=== PATIENT | male | born 1970 | race Two or more races ===

== ENCOUNTER 2021-10-19 17:24 | Inpatient (IN) | payer OTHER ==
[~2021-10-19] VITALS: Ht 170.2 cm; Wt 78.5 kg
[2021-10-19] MEDS ORDERED: SODIUM CHLORIDE 0.9% 1,000 ML IV ONE ×2 (18:15→20:15)
[2021-10-19 18:35] LABS: Eosinophils # (auto) 0 10 ^3/uL (0-0.8); Monocytes # (auto) 1.3 10 ^3/uL (0-1.3); White Blood Cell 14.8 10^3/uL (4.4-10.8)
[2021-10-19 18:45] LABS: Albumin 3.3 g/dL (3.4-5.0); Calcium 8.8 mg/dL (8.5-10.1); Potassium 4.2 mmol/L (3.5-5.1)
[2021-10-19 18:49] LABS: BUN/Creatinine Ratio 15.5; Basophils # (auto) 0.1 10 ^3/uL (0-0.2); Bilirubin, Total 1.9 mg/dL (0.2-1.0); Neutrophils # (auto) 12.9 10 ^3/uL (1.6-8.6); Nucleated Red Blood Cells % 0.1 %; Total Protein 8.2 g/dL (6.4-8.2)
[2021-10-19 18:58] LABS: Basophils % (auto) 0.6 % (0.0-2.0); Hematocrit 52.8 % (41.0-53.0); Lymphocytes # (auto) 0.5 10 ^3/uL (0.4-5.4); Lymphocytes % (auto) 3.6 % (10.0-50.0); Mean Corpuscular Hemoglobin 30.7 pg (28.0-32.0); Mean Corpuscular Hgb Conc. 34.1 g/dL (32.0-36.0); Mean Corpuscular Volume 89.9 fL (80.0-100.0); Monocytes % (auto) 8.6 % (0.0-12.0); Neutrophils % (auto) 87.2 % (37.0-80.0); Red Blood Cells 5.88 10^6/uL (4.5-5.90); Red Cell Distribution Width 13.6 % (11.8-14.3)
[2021-10-19 19:01] LABS: INR 1.29 (0.9-1.15)
[2021-10-19 19:25] LABS: Lactic Acid w/Reflex 2.8 mmol/L (0.4-2.0)
[2021-10-19] MEDS ORDERED: IOHEXOL 350 MG/ML 100ML IJ ONE (19:35)
[2021-10-19] MEDS ORDERED: HEPARIN SODIUM (PORCINE) 5000 UNITS/ML 1ML VIAL IV ONE (20:45)
[2021-10-19] MEDS ORDERED: HEPARIN DRIP/D5W 100UNITS/ML 250 ML IV SCH (20:45)
[2021-10-19] MEDS ORDERED: VANCOMYCIN 1GM/250ML 250 ML IV ONE (21:00)
[2021-10-19] MEDS ORDERED: PIPERACILLIN-TAZOB 3.375GM 100 ML IV ONE ×2 (21:00)
[2021-10-19] MEDS ORDERED: VANCOMYCIN PER PHARMACY 0 MG IV SCH (23:15)
[2021-10-19] MEDS ORDERED: DOCUSATE SOD 100 MG CAP PO PRN (23:15)
[2021-10-19] MEDS ORDERED: HYDROcodone-ACET 5/325MG TAB PO PRN (23:15)
[2021-10-19] MEDS ORDERED: ONDANSETRON HCL 4 MG/2 ML VIAL IV PRN (23:15)
[2021-10-19] MEDS ORDERED: MORPHINE SULFATE 4 MG/ML SYR/VIAL IV PRN (23:15)
[2021-10-19] MEDS ORDERED: ACETAMINOPHEN 325 MG TAB PO PRN (23:15)
[2021-10-19] MEDS: SODIUM CHLORIDE 0.9% 1,000 ML IV SCH (23:15)
[2021-10-19 23:45] LABS: INR 1.49 (0.9-1.15)
[2021-10-19 23:48] LABS: Partial Thromboplastin Time 86.3 sec (23.6-33.0)
[2021-10-20] MEDS ORDERED: MORPHINE SULFATE INJECTION 2 MG/ML SYRG IV PRN (00:15)
[2021-10-20] MEDS ORDERED: NITROGLYCERIN 0.4 MG SL TAB SL PRN (00:15)
[2021-10-20 04:28] LABS: Basophils # (auto) 0.1 10 ^3/uL (0-0.2); Basophils % (auto) 0.4 % (0.0-2.0); Eosinophils # (auto) 0 10 ^3/uL (0-0.8); Eosinophils % (auto) 0.1 % (0.0-7.0); Hematocrit 45.1 % (41.0-53.0); Hemoglobin 15.7 g/dL (13.5-17.5); Lymphocytes % (auto) 7.4 % (10.0-50.0); Mean Corpuscular Hemoglobin 30.8 pg (28.0-32.0); Mean Corpuscular Hgb Conc. 34.8 g/dL (32.0-36.0); Mean Corpuscular Volume 88.4 fL (80.0-100.0); Monocytes # (auto) 1.3 10 ^3/uL (0-1.3); Monocytes % (auto) 9.8 % (0.0-12.0); Neutrophils % (auto) 82.3 % (37.0-80.0); Red Cell Distribution Width 13.5 % (11.8-14.3); White Blood Cell 13.4 10^3/uL (4.4-10.8)
[2021-10-20 04:33] LABS: Potassium 3.9 mmol/L (3.5-5.1)
[2021-10-20 04:45] LABS: Albumin 2.5 g/dL (3.4-5.0); BUN/Creatinine Ratio 18.5; Bilirubin, Total 1.6 mg/dL (0.2-1.0); Calcium 7.6 mg/dL (8.5-10.1); Total Protein 5.7 g/dL (6.4-8.2)
[2021-10-20] MEDS: PIPERACILLIN-TAZOB 3.375GM 100 ML IV SCH ×3 (06:14→22:19)
[2021-10-20 06:46] LABS: INR 1.36 (0.9-1.15); Partial Thromboplastin Time 43.2 sec (23.6-33.0)
[2021-10-20] MEDS: MULTIPLE VITAMIN TAB PO SCH (09:51)
[2021-10-20] MEDS: ZINC SULFATE 220mg CAP or TAB PO SCH (09:51)
[2021-10-20] MEDS: ASCORBIC ACID 500 MG TAB PO SCH ×2 (09:52→20:50)
[2021-10-20] MEDS: VANCOMYCIN 1GM/250ML 250 ML IV SCH ×2 (10:20→18:32)
[2021-10-20] MEDS: FAMOTIDINE (10MG/ML) 2ML VL IV SCH ×2 (10:22→20:50)
[2021-10-20] MEDS: SODIUM CHLORIDE 0.9% 1,000 ML IV SCH (15:04)
[2021-10-20 16:11] LABS: INR 1.44 (0.9-1.15)
[2021-10-20 16:14] LABS: Partial Thromboplastin Time > 139.0 sec (23.6-33.0)
[2021-10-20] MEDS: HEPARIN DRIP/D5W 100UNITS/ML 250 ML IV SCH (17:25)
[2021-10-20 23:45] LABS: INR 1.91 (0.9-1.15)
[2021-10-21] MEDS: VANCOMYCIN 1GM/250ML 250 ML IV SCH ×3 (02:23→18:20)
[2021-10-21] MEDS: PIPERACILLIN-TAZOB 3.375GM 100 ML IV SCH ×2 (05:28→14:12)
[2021-10-21 05:48] LABS: Urine Bacteria FEW /hpf (None Seen); Urine Blood Negative /uL (Negative); Urine Mucus FEW (None Seen); Urine Specific Gravity 1.013 (1.001-1.035); Urine WBC 2 /hpf (0 - 3)
[2021-10-21 08:10] LABS: Basophils # (auto) 0.1 10 ^3/uL (0-0.2); Basophils % (auto) 0.9 % (0.0-2.0); Eosinophils # (auto) 0.1 10 ^3/uL (0-0.8); Eosinophils % (auto) 0.8 % (0.0-7.0); Hematocrit 45.5 % (41.0-53.0); Lymphocytes # (auto) 0.8 10 ^3/uL (0.4-5.4); Lymphocytes % (auto) 8.6 % (10.0-50.0); Mean Corpuscular Hemoglobin 31.3 pg (28.0-32.0); Mean Corpuscular Hgb Conc. 35.1 g/dL (32.0-36.0); Mean Corpuscular Volume 89.3 fL (80.0-100.0); Monocytes # (auto) 0.9 10 ^3/uL (0-1.3); Monocytes % (auto) 9.5 % (0.0-12.0); Neutrophils # (auto) 7.4 10 ^3/uL (1.6-8.6); Neutrophils % (auto) 80.2 % (37.0-80.0); Nucleated Red Blood Cells % 0.2 %; Red Cell Distribution Width 13.4 % (11.8-14.3); White Blood Cell 9.2 10^3/uL (4.4-10.8)
[2021-10-21 08:24] LABS: INR 1.28 (0.9-1.15); Partial Thromboplastin Time 32.5 sec (23.6-33.0)
[2021-10-21 08:26] LABS: Albumin 2.3 g/dL (3.4-5.0); Potassium 3.9 mmol/L (3.5-5.1)
[2021-10-21 08:31] LABS: BUN/Creatinine Ratio 13.1; Bilirubin, Total 0.8 mg/dL (0.2-1.0); Total Protein 5.9 g/dL (6.4-8.2)
[2021-10-21] MEDS: SODIUM CHLORIDE 0.9% 1,000 ML IV SCH (08:39)
[2021-10-21] MEDS ORDERED: HEPARIN SODIUM (PORCINE) 5000 UNITS/ML 1ML VIAL ONE (08:43)
[2021-10-21] MEDS ORDERED: HEPARIN SODIUM (PORCINE) 5000 UNITS/ML 1ML VIAL IV ONE (09:00)
[2021-10-21] MEDS: ZINC SULFATE 220mg CAP or TAB PO SCH (09:26)
[2021-10-21] MEDS: MULTIPLE VITAMIN TAB PO SCH (09:26)
[2021-10-21] MEDS: ASCORBIC ACID 500 MG TAB PO SCH (09:27)
[2021-10-21] MEDS: FAMOTIDINE (10MG/ML) 2ML VL IV SCH (09:58)
[2021-10-21] MEDS: HEPARIN DRIP/D5W 100UNITS/ML 250 ML IV SCH (12:44)
[2021-10-21 16:29] LABS: INR 1.45 (0.9-1.15); Partial Thromboplastin Time 67.2 sec (23.6-33.0)
[2021-10-21 20:04] VITALS: BP 125/83
== END 2021-10-21 21:07 | disposition short-term general hospital (02) | DRG 280 ==
LOC: ER 17:24 → TELE 10-20 00:03
PROVIDERS: ADMIT Nurse Practitioner Family; ATTEND Nurse Practitioner Family
DX: I21.4 Non-ST elevation (NSTEMI) myocardial infarction (principal); I26.92 Saddle embolus of pulmonary artery without acute cor pulmonale; J96.00 Acute respiratory failure, unspecified whether with hypoxia or hypercapnia; E87.2 Acidosis; D72.829 Elevated white blood cell count, unspecified; Z20.822 Contact with and (suspected) exposure to COVID-19; R00.0 Tachycardia, unspecified; Z98.84 Bariatric surgery status; Z89.022 Acquired absence of left finger(s)
CPT/HCPCS: 36415; 71045; 71260; 74177; 80053; 80202; 81001; 83036; 83605; 83690; 83735; 84484; 85025; 85379; 85610; 85730; 87040; 87426; 93306; 93970; 96365; 96375; 99291; G0378; J2543; J3490

== ENCOUNTER 2022-09-10 18:29 | Emergency (ER) | payer OTHER | END 2022-09-10 19:00 | disposition left against medical advice (07) | LOC: ER 18:32 | DX: M79.662 Pain in left lower leg (principal); Z53.21 Procedure and treatment not carried out due to patient leaving prior to being seen by health care provider ==